=== PATIENT | female | born 1990 | race Caucasian/White ===

== ENCOUNTER 2021-01-24 00:32 | Inpatient (IN) | payer BC ==
[2021-01-24 01:32] LABS: Fetal Membranes Rupture RUPTURE DETECTED (No Rupture)
[2021-01-24] MEDS ORDERED: Fentanyl 2 mcg/Bup 0.1% Cadd 100 ML ONE (02:26)
[2021-01-24] MEDS ORDERED: Lidocaine 1% (PF) 30 ML VIAL SC PRN (02:30)
[2021-01-24] MEDS ORDERED: hydrALAZINE 20 MG/ML VIAL SLOW IVP PRN ×2 (02:30→11:43)
[2021-01-24] MEDS ORDERED: Promethazine HCl 25 MG/ML VIAL IM PRN ×3 (02:30→11:43)
[2021-01-24] MEDS ORDERED: NS w/ Oxytocin 30 units 500 ML IV SCH (02:30)
[2021-01-24] MEDS ORDERED: HYDROcodone/Acetaminophen 5/325 mg Tablet PO PRN ×3 (02:30→11:43)
[2021-01-24] MEDS ORDERED: Carboprost 250 MCG/ML AMP IM PRN (02:30)
[2021-01-24] MEDS ORDERED: Butorphanol Tartrate 1 MG/ML VIAL SLOW IVP PRN (02:30)
[2021-01-24] MEDS ORDERED: Ibuprofen 800 MG TAB PO PRN (02:30)
[2021-01-24] MEDS ORDERED: Methylergonovine 0.2 MG/ML VIAL IM PRN ×2 (02:30→11:43)
[2021-01-24] MEDS ORDERED: NS w/ Oxytocin 30 units 500 ML IVPB SCH (02:30)
[2021-01-24] MEDS ORDERED: Ondansetron PF 4 MG/2 ML Vial IVP PRN ×3 (02:30→11:43)
[2021-01-24] MEDS ORDERED: Misoprostol 200 MCG TAB RC PRN (02:30)
[2021-01-24] MEDS ORDERED: Acetaminophen 500 MG TAB PO PRN (02:30)
[2021-01-24] MEDS: Lactated Ringer's 1,000 ML IV SCH ×2 (02:37→04:19)
[2021-01-24 02:38] LABS: Hemoglobin 12.5 g/dL (12.0-15.5); Mean Corpuscular HGB CONC 34.2 g/dL (32.0-36.0); Mean Corpuscular Hemoglobin 30.7 pg (27.0-33.0); Mean Corpuscular Volume 89.9 fl (81.6-98.3); RBC Distribution Width 13.5 % (11.5-14.5); Red Blood Cell (RBC) Count 4.07 10x6/uL (3.90-5.03); White Blood Cell (WBC) Count 12.8 10x3/uL (3.5-10.5)
[2021-01-24 02:39] LABS: Platelet Count 211 10x3/uL (150-450)
[2021-01-24 03:15] LABS: Syphilis Antibody Nonreactive (Nonreactive); Syphilis Antibody Index 0.02 S/CO (<1.00 Non-Reactive)
[2021-01-24 03:16] LABS: Hep B Surf Ag Non-Reactive S/CO (NonReactive)
[2021-01-24] MEDS ORDERED: Hydrocerin (Eucerin) Cream 120 gm Jar TOP PRN (03:16)
[2021-01-24] MEDS ORDERED: ePHEDrine Sulfate 50 MG/10 ML VIAL SLOW IVP PRN (03:16)
[2021-01-24] MEDS ORDERED: diphenhydrAMINE 50 MG/ML VIAL IVP PRN (03:16)
[2021-01-24] MEDS ORDERED: Acetaminophen 325 MG TAB PO PRN (03:16)
[2021-01-24] MEDS ORDERED: Naloxone HCl 0.4 mg/ml Vial IVP PRN ×2 (03:16)
[2021-01-24] MEDS ORDERED: Lactated Ringer's 500 ML IV PRN (03:16)
[2021-01-24] MEDS ORDERED: Fentanyl 2 mcg/Bupivacaine 0.1% Cassette 100 ML EPIDURAL SCH (03:30)
[2021-01-24] MEDS ORDERED: Communication Order-Pharmacy FS SCH (03:30)
[2021-01-24 03:31] LABS: SARS-CoV-2 NAA Rapid Test Not Detected (NotDetected)
[2021-01-24 03:35] VITALS: BMI 32.8
[2021-01-24 03:38] LABS: HBSAg Index 0.21 S/CO (0-0.99)
[2021-01-24] MEDS ORDERED: Bupivacaine 0.25% HCL 30 ML VIAL ONE (06:00)
[2021-01-24] MEDS: NS w/ Oxytocin 30 units 500 ML IV SCH ×2 (08:30→10:37)
[2021-01-24] MEDS ORDERED: Misoprostol 200 MCG TAB VAG PRN (11:43)
[2021-01-24] MEDS ORDERED: Bisacodyl 10 MG SUPP PR PRN (11:43)
[2021-01-24] MEDS ORDERED: Boostrix 0.5 ML (Tdap) VIAL IM ONE (11:43)
[2021-01-24] MEDS ORDERED: Preparation H Ointment 28 GM TUBE PR PRN (11:43)
[2021-01-24] MEDS ORDERED: Milk Of Magnesia 30 ML UDCUP PO PRN (11:43)
[2021-01-24] MEDS ORDERED: diphenhydrAMINE 25 MG CAP PO PRN (11:43)
[2021-01-24] MEDS: HYDROcodone/Acetaminophen 5/325 mg Tablet PO PRN ×2 (13:24→18:00)
[2021-01-24] MEDS ORDERED: Benzocaine-Menthol 82.5 ML CAN TOP PRN (13:36)
[2021-01-24] MEDS: Ferrous Sulfate 325 MG TAB PO SCH (16:12)
[2021-01-24] MEDS: Docusate Calcium (SURFAK) 240 MG CAP PO SCH (21:29)
[2021-01-24] MEDS: Ibuprofen 800 MG TAB PO SCH (21:30)
[2021-01-25] MEDS: Ibuprofen 800 MG TAB PO SCH ×2 (03:31→05:19)
[2021-01-25 07:51] VITALS: BP 102/53; TEMP 98.5
[2021-01-25] MEDS ORDERED: Prenatal Vitamin 1 TAB PO SCH (09:00)
[2021-01-25] MEDS: Ferrous Sulfate 325 MG TAB PO SCH (10:24)
[2021-01-25] MEDS: Docusate Calcium (SURFAK) 240 MG CAP PO SCH (11:12)
== END 2021-01-25 13:20 | disposition home or self-care (01) | DRG 807 ==
LOC: CSHLD/OP 00:32 → CSHLD 01:44 → CSHPP 11:20
PROVIDERS: ADMIT Obstetrics & Gynecology; ATTEND Obstetrics & Gynecology
PROC: 10E0XZZ Delivery of Products of Conception, External Approach (ICD-10-PCS; principal; 2021-01-24)
PROC: 0KQM0ZZ Repair Perineum Muscle, Open Approach (ICD-10-PCS; 2021-01-24)
PROC: 10907ZC Drainage of Amniotic Fluid, Therapeutic from Products of Conception, Via Natural or Artificial Opening (ICD-10-PCS; 2021-01-24)
DX: O70.1 Second degree perineal laceration during delivery (principal); Z37.0 Single live birth; O71.82 Other specified trauma to perineum and vulva; Z3A.38 38 weeks gestation of pregnancy; Z20.822 Contact with and (suspected) exposure to COVID-19
CPT/HCPCS: 36415; 51702; 84112; 85027; 86780; 86850; 86900; 86901; 87340; 99285; J2405; J2590; J7120; S0020; U0002